=== PATIENT | male | born 1950 | race African-American/Black ===

== ENCOUNTER 2021-11-03 11:39 | Emergency (ER) | payer OTHER ==
[2021-11-03 12:23] LABS: #Monocytes 0.8 10x3/uL (0.0-1.1); #Neutrophils 4.7 10x3/uL (1.5-8.4); %Basophils 0.5 % (0.0-2.0); %Eosinophils 0.5 % (0.0-6.0); %Lymphocytes 12.1 % (18.0-47.0); %Monocytes 11.9 % (0.0-10.0); %Neutrophils 74.2 % (40.0-75.0); Hemoglobin 14.7 g/dL (13.5-17.5); Mean Corpuscular Hemoglobin 26.6 pg (27.0-33.0); Mean Corpuscular Volume 80.6 fl (81.2-95.1); Mean Platelet Volume 10.6 fl (7.4-10.4); Platelet Count 316 10x3/uL (150-450); RBC Distribution Width 14.6 % (11.5-14.5); Red Blood Cell (RBC) Count 5.52 10x6/uL (4.32-5.72); White Blood Cell (WBC) Count 6.3 10x3/uL (3.5-10.5)
[2021-11-03] MEDS ORDERED: Morphine 4 MG/ML VIAL ONE (12:35)
[2021-11-03] MEDS ORDERED: Ondansetron PF 4 MG/2 ML Vial ONE (12:36)
[2021-11-03 12:38] LABS: ALT (SGPT) 44 U/L (8-55); AST (SGOT) 127 U/L (5-34); Alkaline Phosphatase 328 U/L (40-110); Anion Gap 14 mmol/L (10-20); BUN (Urea Nitrogen) 11 mg/dL (8.4-25.7); Bilirubin, Total 2.1 mg/dL (0.2-1.2); Calc. Creatinine Clearance 0 mL/min (70-130); Calcium 9.2 mg/dL (7.8-10.44); Carbon Dioxide 20 mmol/L (23-31); Chloride 104 mmol/L (98-107); Globulin 4.5 g/dL (2.4-3.5); Glucose 106 mg/dL (80-115); Lipase 17 U/L (8-78); Potassium 3.8 mmol/L (3.5-5.1); Protein, Total 7.5 g/dL (5.8-8.1); Sodium 134 mmol/L (136-145)
[2021-11-03] MEDS ORDERED: Iopamidol 300 61% 100 ML VIAL FS ONE (15:33)
== END 2021-11-03 17:31 | disposition home or self-care (01) ==
LOC: CSHERS 11:39
DX: C79.89 Secondary malignant neoplasm of other specified sites (principal); C78.00 Secondary malignant neoplasm of unspecified lung; R16.0 Hepatomegaly, not elsewhere classified; K86.89 Other specified diseases of pancreas; I10 Essential (primary) hypertension
CPT/HCPCS: 71250; 74177; 80053; 83690; 84484; 85025; 93005; 96374; 96375; J2270; J2405; Q9967

== ENCOUNTER → 2021-11-13 | Emergency (ER) | payer OTHER ==
[~2021-11-13] MED LIST: Morphine 4 MG/ML VIAL ONE; Ondansetron PF 4 MG/2 ML Vial ONE
[2021-11-13 23:23] LABS: #Basophils 0.1 10x3/uL (0.0-0.2); #Monocytes 0.8 10x3/uL (0.0-1.1); #Neutrophils 5.9 10x3/uL (1.5-8.4); %Eosinophils 0.3 % (0.0-6.0); %Monocytes 10.3 % (0.0-10.0); %Neutrophils 76.1 % (40.0-75.0); Hemoglobin 16.7 g/dL (13.5-17.5); Mean Corpuscular HGB CONC 33.9 g/dL (32.0-36.0); Mean Corpuscular Hemoglobin 26.8 pg (27.0-33.0); Mean Platelet Volume 9.9 fl (7.4-10.4); Platelet Count 361 10x3/uL (150-450); RBC Distribution Width 17.8 % (11.5-14.5); Red Blood Cell (RBC) Count 6.23 10x6/uL (4.32-5.72); White Blood Cell (WBC) Count 7.8 10x3/uL (3.5-10.5)
[2021-11-13 23:40] LABS: ALT (SGPT) 59 U/L (8-55); AST (SGOT) 188 U/L (5-34); Albumin 2.9 g/dL (3.4-4.8); Alkaline Phosphatase 648 U/L (40-110); Anion Gap 17 mmol/L (10-20); BUN (Urea Nitrogen) 22 mg/dL (8.4-25.7); Bilirubin, Total 4.4 mg/dL (0.2-1.2); Calc. Creatinine Clearance 0 mL/min (70-130); Calcium 9.5 mg/dL (7.8-10.44); Carbon Dioxide 18 mmol/L (23-31); Chloride 104 mmol/L (98-107); Globulin 4.8 g/dL (2.4-3.5); Glucose 102 mg/dL (80-115); Lipase 20 U/L (8-78); Potassium 4.3 mmol/L (3.5-5.1); Protein, Total 7.7 g/dL (5.8-8.1)
[2021-11-13 23:55] LABS: Sodium 135 mmol/L (136-145)
[2021-11-14 00:14] LABS: SARS-CoV-2 NAA Rapid Test Not Detected (NotDetected)
[2021-11-14 02:07] LABS: Lactic Acid 1.6 mmol/L (0.5-2.2)
[2021-11-14 08:21] LABS: Bilirubin Neg (Negative); Blood, Urine Negative (Negative); Clarity Clear (Clear); Glucose, Urine (Dipstick) Normal (Negative); Ketone, Urine Negative (Negative); Leukocyte Negative (Negative); Nitrite Negative (Negative); Protein, Urine (Dipstick) 15 mg/dl (Neg-Trace)
== END ==
LOC: CSHERS 23:00 → EEVIPCON 23:00
DX: C76.2 Malignant neoplasm of abdomen (principal); D14.30 Benign neoplasm of unspecified bronchus and lung; Z20.822 Contact with and (suspected) exposure to COVID-19; Z79.899 Other long term (current) drug therapy
CPT/HCPCS: 36415; 71275; 74177; 80053; 81003; 83605; 83690; 84484; 85025; 87040; 87086; 93005; 96374; 96375; 96376; J2270; J2405; U0002